=== PATIENT | male | born 2000 | race Caucasian/White ===

== ENCOUNTER → 2019-04-11 17:50 | Outpatient (CLI) | payer OTHER, SELFPAY ==
--- NOTE | 2019-04-11 18:03 | DI.RAD.S_ITS ---
PROCEDURE: XR FINGER RT MIN 2V INDICATIONS: R thumb pain and swelling post injury TECHNIQUE: AP hand, 2 views of the thumb acquired. COMPARISON: None. FINDINGS: Bones: No fractures or dislocations. No suspicious bony lesions. Soft tissues: No suspicious soft tissue calcifications. IMPRESSION: No evidence acute bony abnormality of the right thumb Dictated by: Jamie Suggs M.D. on 04/11/2019 at 18:55 Approved by: Jamie Suggs M.D. on 04/11/2019 at 18:55
== END ==
PROVIDERS: PCP Family Medicine; Visit Provider Nurse Practitioner
DX: M79.644 Pain in right finger(s) (principal); M79.89 Other specified soft tissue disorders
CPT/HCPCS: 73140